=== PATIENT | male | born 1995 | race Two or more races ===

== ENCOUNTER 2023-08-24 12:16 | Emergency (ER) | payer OTHER ==
[~2023-08-24] VITALS: Ht 180.3 cm; Wt 81.8 kg
[2023-08-24 12:30] VITALS: BP 134/94; PULSE 116; RESP 18; TEMP 102.4
[2023-08-24 12:57] LABS: COVID AG,FIA SOURCE NASAL SWAB
[2023-08-24 12:57] LABS: BAND NEUTROPHILS % (MANUAL) 0 % (0-5)
[2023-08-24 13:01] LABS: HEMOGLOBIN 14.9 g/dL (13.5-17.5); MEAN CORPUSCULAR HEMOGLOBIN 32.9 pg (26.0-34.0); MEAN CORPUSCULAR HGB CONC 33.8 G/dL (31.0-37.0); MEAN CORPUSCULAR VOLUME 97 fL (80-100); PLATELET COUNT (AUTO) 175 K/uL (150-450); RED BLOOD CELL COUNT(AUTO) 4.52 MIL/uL (4.50-5.90); WHITE BLOOD COUNT (AUTO) 8.5 K/uL (4.5-11.0)
[2023-08-24 13:11] LABS: ANION GAP 11 mmol/L (8-16); CALCIUM, TOTAL 9.4 mg/dL (8.8-10.5); CARBON DIOXIDE 25 mmol/L (22-29); CHLORIDE 101 mmol/L (98-107); CREATININE 1.19 mg/dL (0.60-1.30); GLOMERULAR FILTR. RATE CALC > 60 mL/min (>60); GLUCOSE,RANDOM 200 mg/dL (70-110); POTASSIUM 3.8 mmol/L (3.5-5.1); SODIUM SERUM 137 mmol/L (136-145); UREA NITROGEN, BLOOD 10 mg/dL (7-18)
[2023-08-24 13:12] LABS: RAPID GROUP A STREP NEGATIVE (NEGATIVE)
[2023-08-24 13:15] LABS: ALANINE AMINOTRANSFERASE 23 U/L (12-78); ALBUMIN 3.7 g/dL (3.4-5.0); ALKALINE PHOSPHATASE 45 U/L (46-116); ASPARTATE AMINOTRANSFERASE 8 U/L (15-37); BILIRUBIN,TOTAL 0.4 mg/dL (0.1-1.0)
[2023-08-24 13:26] LABS: INFLUENZA TYPE A NEGATIVE FOR TYPE A (NEGATIVE); INFLUENZA TYPE B NEGATIVE FOR TYPE B (NEGATIVE)
[2023-08-24 13:27] LABS: SARS-COV2 (COVID) ANTIGEN,FIA Negative (Negative)
[2023-08-24 13:39] LABS: EOSINOPHILS % (MANUAL) 1 % (1-6); LYMPHOCYTES % (MANUAL) 9 % (22-44); MONOCYTES % (MANUAL) 8 % (2-9); RBC MORPHOLOGY COMMENT NORMAL RBC MORPH; SEGMENTED NEUTROPHILS % 82 % (40-70); TOTAL CELLS COUNTED 100
[2023-08-24] MEDS: ACETAMINOPHEN 500 MG TABLET PO ONE (15:23)
[2023-08-24] MEDS: AMPICILLIN SODIUM/SULBACTAM NA 1.5 GM in SODIUM CHLORIDE 0.9% 50 ML IV ONE (16:31)
[2023-08-24] MEDS: SODIUM CHLORIDE 0.9% 1,000 ML IV ONE (16:31)
[2023-08-24] MEDS ORDERED: AMOX250C4 PO (19:53)
[2023-08-24] MEDS ORDERED: BACITRACIN 0.9 GM PACKET OINTMENT TP ONE (20:00)
[2023-08-24] MEDS: BACITRACIN 28 GM OINTMENT TP ONE (20:07)
== END 2023-08-24 20:09 | disposition home or self-care (01) ==
LOC: EMS 12:16
DX: J02.0 Streptococcal pharyngitis (principal); Z20.822 Contact with and (suspected) exposure to COVID-19
CPT/HCPCS: 99285; 96365; 72131; 71045; 87426; 80053; 85007; 85027; 87040; 87430; 87804; 36415; J0295; J7050